=== PATIENT | male | born 1970 | race Caucasian/White ===

== ENCOUNTER 2016-10-25 11:59 | Emergency (ER) ==
[2016-10-25 12:06] VITALS: BP 142/78
--- NOTE | 2016-10-25 12:43 | PROVIDER DOCUMENTATION ---
HPI-General Adult - General Source: patient - History of Present Illness -Gen Adult Nature of Presenting Problems: Presents to er with cc of cough congestion x 3 days with vomiting x 3 in two days. Reprots sick contacts of walking pneumonia. States having hot and cold flashes but denies taking temperature. Reports green production of phelgm. Quality of Pain: reports: none Onset/Duration: reports: 3 days ago Timing: reports: still present Similar Symptoms Previously?: No Recently seen or treated by another doctor?: No <Samuel Escalona - Last Filed: 10/25/16 12:44> <Brynn Puckett - Last Filed: 10/25/16 13:14> - General Chief Complaint: Flu Symptoms Stated Complaint: POSS FLU,VOMITING Time Seen by Provider: 10/25/16 12:08 Allergies/Adverse Reactions: Patient Allergies Allergy/AdvReac Type Severity Reaction Status Date / Time No Known Allergies Allergy Verified 10/25/16 12:14 Home Medications: Home Medication List Medication Instructions Recorded Confirmed Last Taken Type Amoxicillin [Amoxil] 875 mg PO BID #14 tablet 10/25/16 Unknown Rx Guaifenesin/Dm E.r. [Mucinex Dm] 1 each PO BID #30 tablet 10/25/16 Unknown Rx Prednisone 20 mg PO DAILY #12 tablet 10/25/16 Unknown Rx Promethazine [Phenergan] 25 mg PO Q6H PRN PRN #20 tablet 10/25/16 Unknown Rx Review of Systems - Adult - REVIEW OF SYSTEMS - ADULT Constitutional: reports: chills. denies: fever, fatique, weight gain, weight loss Eyes: reports: no symptoms reported Ears, Nose, Mouth & Throat: reports: sinus problem. denies: ear pain, throat pain Cardiovascular: denies: chest pain, irregular heart rate, orthopnea, syncope Respiratory: reports: cough. denies: shortness of breath, wheezing Gastrointestinal: reports: vomiting. denies: abdominal pain, diarrhea, difficulty swallowing, frequent heartburn Genitourinary: reports: no symptoms reported Musculoskeletal: reports: no symptoms reported Integumentary: reports: no symptoms reported Neurological: reports: no symptoms reported Psychiatric: reports: no symptoms reported Endocrine: reports: no symptoms reported Hematologic/Lymphatic: reports: no symptoms reported Allergic/Immunologic: reports: no symptoms reported All Other Systems: Reviewed and Negative <Samuel Escalona - Last Filed: 10/25/16 12:44> Past History - Adult - PAST MEDICAL HISTORY-ADULT Review of Records: reports: Nursing Assessment Review, Medications Reviewed Major Childhood Illnesses: reports: denies history Gastrointestinal: reports: GERD - PRIOR SURGERIES/PROCEDURES Surgical/Procedure History: reports: other (ex lap due to trauma) - IMMUNIZATION STATUS Childhood Immunizations: See Nurse Assessment Flu Vaccine: See Nurse Assessment - SOCIAL HISTORY Smoking: cigarettes, less than 1 pack/day Provider spent 3-5 mins advising pt. on dangers of tobacco.: Discussed manners to quit use, and f/u contacts for add'l counseling. Substance Use: none/never <Samuel Escalona - Last Filed: 10/25/16 12:44> Physical Exam-General - PHYSICAL EXAM-ADULT Initial Vital Signs Reviewed: Yes - CONSTITUTIONAL General Appearance: appears well, alert, no apparent distress - EYES Eyes: PERRL/EOMI - HEAD, EARS, NOSE, MOUTH & THROAT HENMT: normocephalic/atraumatic, moist mucous membranes, TMs normal, pharyngeal erythema - NECK Neck: non-tender, full range of motion, supple - RESPIRATORY Respiratory: chest non-tender, lungs clear, no pleuratic chest pain, no respiratory distress, decreased breath sounds (bilaterally). negative: crackles , rales, rhonchi, stridor, wheezing - CARDIOVASCULAR Cardiovascular: regular rate, rhythm - GASTROINTESTINAL (ABDOMEN) Abdominal Exam: normal bowel sounds, non tender, soft, no organomegaly, no pulsatile mass - MUSCULOSKELETAL Extremity: normal range of motion, non-tender - SKIN Integumentary: normal color, normal turgor, warm/dry - PSYCHIATRIC Psych/Mental Status: normal mood/affect, normal thought content, normal thought process, oriented x 3 <Samuel Escalona - Last Filed: 10/25/16 12:44> Progress - PLAN OF CARE/RESULTS Progress/Plan/Lab Results: Orders Category Date Time Status CHEST-2 VIEWS [RAD] Stat Exams 10/25/16 12:20 Taken INFLUENZA SCREEN A/B Stat Lab 10/25/16 12:11 Completed Vital Signs - 24 hr 10/25/16 12:03 Temperature 98.9 F Pulse Rate 79 Respiratory 20 Rate Blood Pressure 142/78 O2 Sat by Pulse 100 Oximetry Flu is negative - XRAY 1 XRAY: Bilateral XRAY Study: Chest Impression: Normal XRAY Interpretation: nad <Samuel Escalona - Last Filed: 10/25/16 12:44> - PLAN OF CARE/RESULTS Progress/Plan/Lab Results: Discussed results with patient and medication use. <Brynn Puckett - Last Filed: 10/25/16 13:14> Departure <Samuel Escalona - Last Filed: 10/25/16 12:44> - Departure Time of Disposition Order: 12:52 Certified Medical Emergency: Emergent <Lavern,Brynn HeribertoMireya - Last Filed: 10/25/16 13:14> - Departure DIAGNOSIS: Viral syndrome Disposition: HOME 01 Condition: Stable Additional Instructions: Take tylenol and motrin for fever/chills. Drink plenty of fluids. Follow up with PCP in 3-5 days for recheck. Fill antibiotic if symptoms get worse. ED Follow Up Instructions: You have been treated by a care provider in the Emergency Department. These instructions are being provided to you so you can have an understanding of how to care for yourself upon discharge. Upon discharge from the Emergency Department, you are responsible for making arrangements for follow-up care by a physician of your choice. Take all prescribed medications as directed. Return to the Emergency Department immediately for any new or worsening symptoms. You may call the Physician Referral phone number at [phone] to obtain a list of Physicians who are taking new patients. Prescriptions: Amoxicillin [Amoxil] 875 mg PO BID #14 tablet Guaifenesin/Dm E.r. [Mucinex Dm] 1 each PO BID #30 tablet Promethazine [Phenergan] 25 mg PO Q6H PRN PRN #20 tablet PRN Reason: Nausea Prednisone 20 mg PO DAILY #12 tablet Referrals: None,PCP [Primary Care Provider] - Forms: Return to School/Parent Work Instructions: Viral Infections, [id number] Attestation - Scribe Verification/Attestation Scribe:: Samuel Escalona Acting as Scribe for:: Brynn Puckett Scribe documention review:: This chart was documented by a scribe and accurately reflects the service the provider performed and the decisions made by the provider. <Samuel Escalona - Last Filed: 10/25/16 12:44> Physician Attestation
--- NOTE | 2016-10-25 13:38 | Diag Imaging Result Document ---
PROCEDURE NAME: CHEST-2 VIEWS - 10/25/2016 PA AND LATERAL RADIOGRAPH OF THE CHEST: COMPARISON: None available. FINDINGS: There is a small calcified granuloma at the periphery of the right mid lung zone. The lungs are grossly clear, otherwise. There is no definite pleural fluid collection. Cardiac silhouette and central vasculature are grossly unremarkable. IMPRESSION: No definite acute pathology.
== END 2016-10-25 13:12 | disposition home or self-care (01) ==
LOC: ED 11:59
DX: B34.9 Viral infection, unspecified (principal); R05 Cough; R09.81 Nasal congestion; R11.10 Vomiting, unspecified; R68.83 Chills (without fever); F17.210 Nicotine dependence, cigarettes, uncomplicated; Z71.6 Tobacco abuse counseling
CPT/HCPCS: 71020; 87804